=== PATIENT | female | born 1975 | race Two or more races ===

== ENCOUNTER 2016-12-09 06:02 | Day surgery (SDC) | payer OTHER ==
[~2016-12-09] VITALS: Ht 165.1 cm; Wt 65.8 kg
[2016-12-09 06:30] VITALS: Ht 165.1 cm; Wt 65.8 kg
[2016-12-09] MEDS ORDERED: LEVO100T87 PO (06:48)
[2016-12-09] MEDS ORDERED: RANI75TA13 PO (06:48)
[2016-12-09 07:03] VITALS: BP 117/79; PULSE 100; RESP 12
[2016-12-09] MEDS ORDERED: FENTAnyl 50 MCG/ML VIAL ONE (07:38)
[2016-12-09] MEDS ORDERED: MIDAZOLAM 1 MG/ML 2 ML INJ ONE ×3 (07:38)
[2016-12-09 07:50] VITALS: BP 109/67; RESP 18
[2016-12-09 07:55] VITALS: BP 100/66; RESP 18
--- NOTE | 2016-12-09 08:09 | GILP ---
DATE OF PROCEDURE: NAME OF PROCEDURES: Esophagogastroduodenoscopy and biopsy. SURGEON: Zachary Enrique MD PREOPERATIVE DIAGNOSES: 1. Abdominal pain. 2. Chronic heartburn. POSTOPERATIVE DIAGNOSES: 1. Gastroesophageal reflux disease. 2. Gastritis with erosions. 3. Gastric mucosal biopsies were taken for Helicobacter pylori test. INDICATION FOR THE PROCEDURE: Ms. Tari Marie is a 41-year-old female patient who had upper abdo deny pain and chronic heartburn, not responding to therapy. The patient was scheduled for endoscop ic examination for further evaluation. The procedure and possible complications are well explained to the patient. She understood and cons ented to the procedure. DESCRIPTION OF PROCEDURE: Under the influence of fentanyl and Versed, the gastroscope was carefully introduced into the esophagus, and under direct vision, it was advanced to the stomach and through the pylorus into the duodenal bulb and descending duodenum. FINDINGS: ESOPHAGUS: The patient had gastroesophageal reflux disease. STOMACH: She had gastritis with erosions. Gastric mucosal biopsies were taken for H. pylori test. DUODENUM: Normal. She tolerated the procedure very well, and there was no complication from the procedure. At the end of the procedure, she was awake with stable vital signs, and she was discharged home to the care of her family. IMPRESSION: 1. Gastroesophageal reflux disease. 2. Gastritis with erosions. 3. Gastric mucosal biopsies were taken for Helicobacter pylori test. PLAN: 1. Pantoprazole 40 mg p.o. q. a.m. 2. Await H. pylori test report. Dictated By: ZACHARY CH/NATALI Conf#: [id number] DID#: [id number]
--- NOTE | 2016-12-10 11:26 | CONS ---
DATE OF ADMISSION: 12/09/2016 DATE OF CONSULTATION: TYPE OF CONSULTATION: Preoperative gastroenterology. Dear Dr. Whitmore: I thank you very much for this kind referral. HISTORY OF PRESENT ILLNESS: Ms. Fabián Interiano is a 40-year-old female patient who has been refe rred to me for further evaluation of upper abdominal pain and chronic heartburn, not responding to t herapy with Zantac. She also tried omeprazole without any relief. There is no past history of pept ic ulcer disease. She is not taking any nonsteroidal anti-inflammatory agents. Her appetite has be en good, and she is not losing any weight. There is no history of gallstones. She does not have an y fever, chills or jaundice. There is no history of liver disease. Patient denies any change in th e bowel habit or rectal bleeding. There is no past history of inflammatory bowel disease or colon n eoplasm. She is not a hypertensive or diabetic. She does not have any heart disease or lung proble m. There is no history of kidney disease. She is status post thyroid surgery and she has got hypot hyroidism. SOCIAL HISTORY: She is a nonsmoker. She does not abuse alcohol. FAMILY HISTORY: Particular for the history of stomach cancer in her dad. ALLERGIES: THERE IS NO HISTORY OF SIGNIFICANT DRUG ALLERGY. MEDICATIONS: 1. Zantac. 2. Levothyroxine. PHYSICAL EXAMINATION VITAL SIGNS: She is 5 feet 5 inches tall and she weighs 160 pounds. HEART: Examination of the heart reveals normal first and second heart sounds. LUNGS: Clear. ABDOMEN: Soft without any distention. Liver and spleen are not palpable. There are no masses. Th ere is no focal tenderness. Normal bowel sounds are heard. CENTRAL NERVOUS SYSTEM: Does not reveal any focal neurological deficit. IMPRESSION: 1. Upper abdominal pain and chronic heartburn, not responding to therapy with Zantac. 2. The patient has tried omeprazole without any relief. 3. Status post thyroid surgery and the patient has got hypothyroidism. 4. Patient's father had stomach cancer. PLAN: Endoscopic examination for further evaluation. The procedure and possible complications are well explained to the patient. She understands and con sents to the procedure. I thank you once again. With warmest personal regards, Dictated By: DANO CH/NATALI Conf#: [id number] DID#: [id number] CC: DANO DIXON MD;*[facility]*
== END 2016-12-09 10:58 | disposition home or self-care (01) ==
LOC: GIL 06:02
PROVIDERS: ATTEND Internal Medicine Gastroenterology
DX: K21.9 Gastro-esophageal reflux disease without esophagitis (principal); K29.60 Other gastritis without bleeding
CPT/HCPCS: 43239; 84703; 87081; J2250; J3010; Z7610